=== PATIENT | male | born 1940 | race Caucasian/White ===

== ENCOUNTER → 2018-09-10 | Outpatient (CLI) | payer MEDICARE ==
[~2018-09-10] MED LIST: ALBU18HF PO; ENAL20TA PO; LEVO75TA PO; ROPI2TAB4 PO; SIMV40TA3 PO; WARF-36 PO
== END | disposition home or self-care (01) ==
LOC: STAR 10:18
PROVIDERS: ATTEND Colon & Rectal Surgery
DX: Z01.818 Encounter for other preprocedural examination (principal); I45.2 Bifascicular block; I51.7 Cardiomegaly
CPT/HCPCS: 93005